=== PATIENT | male | born 1975 | race Caucasian/White ===

== ENCOUNTER 2018-11-08 11:05 | Emergency (ER) | payer MEDICAID ==
[~2018-11-08] VITALS: Ht 190.5 cm; Wt 100.0 kg
[2018-11-08 11:06] VITALS: BP 135/86
== END 2018-11-08 11:47 | disposition home or self-care (01) ==
LOC: ER 11:06
DX: S50.11XA Contusion of right forearm, initial encounter (principal); R00.0 Tachycardia, unspecified; F22 Delusional disorders; F41.9 Anxiety disorder, unspecified; Z88.6 Allergy status to analgesic agent; Z59.0 Homelessness; Z56.0 Unemployment, unspecified; X58.XXXA Exposure to other specified factors, initial encounter; Y93.89 Activity, other specified; Y92.89 Other specified places as the place of occurrence of the external cause; Y99.8 Other external cause status
CPT/HCPCS: 99281

== ENCOUNTER 2024-08-27 13:31 | Emergency (ER) | payer MEDICAID ==
[~2024-08-27] VITALS: Ht 190.5 cm; Wt 125.4 kg
[2024-08-27 13:35] VITALS: BP 160/84; PULSE 87; RESP 18; TEMP 97.8; O2SAT 98
--- NOTE | 2024-08-27 13:46 | ELECTROCARDIOGRAPH REPORT ---
[facility] Test Date: 2024-08-27 Test Time: 13:43:24 Pat Name: VELVET SOLORZANO Department: [facility]ER Patient ID: [id number] Room: Gender: M [employer]: : 1975 Requested By: KHANG PANG Order Number: [id number] Reading MD: Dr. Khang Pang Measurements Intervals [place] Rate: 101 P: 69 MI: 161 QRS: -8 QRSD: 104 T: 28 QT: 344 QTc: 446 Interpretive Statements Sinus tachycardia Abnormal R-wave progression, early transition Borderline T wave abnormalities Electronically Signed On 08-27-2024 16:26:[address] Khang Pang Please click the below link to view image of tracing.
--- NOTE | 2024-08-27 15:38 | Physician Documentation ---
History of Present Illness ~ Chief Complaint: Medical Clearance Stated Complaint: EKG Time Seen by MD: 13:58 Primary Medical Doctor: DR DARBY VALLEJO The patient is seen today with Complaints of needing med clearance/EKG clearance for his the methadone clinic at which he just recently establish care. Patient states he has been on methadone for quite a while. Patient denies any current chest pain or shortness of breath or abdominal pain or nausea, vomiting, diarrhea. Patient has no new or other concern or complaint at this time. Tetanus within 5 years?: Yes Medication Reconciliation Allergies: Coded Allergies: ibuprofen (Verified Adverse Reaction, Unknown, BLEEDING ULCERS, 08/27/24) Past Medical History Past Medical History: No Pertinent History Past Surgical History: noncontributory Lives In: Homeless Occupation: unemployed Review of Systems Constitutional: Denies: chills, fever, weakness Eyes: Denies: pain, blurred vision ENT: Denies: ear pain, nose pain, throat pain, mouth pain Respiratory: Denies: cough, shortness of breath Cardiovascular: Denies: chest pain, palpitations Gastrointestinal: Denies: abdominal pain, nausea, vomiting Genitourinary: Denies: burning, dysuria Male Genitalia: Denies: penile discharge, testicular pain Neurological: Denies: headache, dizziness Musculoskeletal: Denies: pain, swelling Integumentary: Denies: rash, lesions Allergic/Immunologic: Denies: hives, itching Hematologic/Lymphatic: Denies: no symptoms reported Psychiatric: Denies: depression, anxiety Physical Exam Vital Signs: Temperature: 97.8, Source: Temporal, Heart Rate: 87, Respiratory Rate: 18, BP: 160/84, Pulse Oximetry: 98, Weight: 125.400 Physical Exam General: Awake and Alert, no acute distress. HEENT: Conjunctiva pink, Sclera clear, Mucus Membranes moist. Neck: Supple without masses and tenderness. Resp: Unlabored. Lungs clear to auscultation bilaterally. Heart: Regular Rate and rhythm, normal S1 and S2 without murmur, rub or gallop. Abdomen: Soft and non tender no organomegaly Extremities: No cyanosis,clubbing or edema. Skin: Warm and Dry. Progress Results/Orders Results/Orders Vital Signs 08/27/24 13:35 Temp 97.8 Pulse 87 Resp 18 B/P (MAP) 160/84 Pulse Ox 98 EKG/XRAY/CT/US/VASC/MRI EKG : Additional Comment EKG interpretation by myself today shows mildly tachycardic rate at 101 beats per minute, normal sinus rhythm, no sign of ST segment elevation or ischemia, no axis deviation. Medical Decision Making Findings The patient is seen today with Complaints of needing med clearance/EKG clearance for his the methadone clinic at which he just recently establish care. Patient states he has been on methadone for quite a while. Patient denies any current chest pain or shortness of breath or abdominal pain or nausea, vomiting, diarrhea. Patient has no new or other concern or complaint at this time. Patient's EKGs largely within normal limits and unremarkable other than mild tachycardia. I did recheck patient's heart rate shortly after and his heart rate did come down to 92 beats per minute. Patient is cleared medically for treatment at the methadone clinic. Patient will return to ED with any worsening, concerning or changing symptoms. Departure Disposition: 01 HOME / SELF CARE / HOMELESS Impression: Primary Impression: General medical exam Condition: Stable Discharge Instructions: Medical Screening Exam Additional Instructions: Patient's EKGs largely within normal limits and unremarkable other than mild tachycardia. I did recheck patient's heart rate shortly after and his heart rate did come down to 92 beats per minute. Patient is cleared medically for t reatment at the methadone clinic. Patient will return to ED with any worsening, concerning or changing symptoms. Referrals: NO PRIMARY CARE PROVIDER (PCP) Signature Scribe Signature: No scribe Attestation: No scribe ZEN TREVIZO PAC August 27, 2024 15:38
== END 2024-08-27 15:50 | disposition home or self-care (01) ==
LOC: ER 13:32
DX: Z00.8 Encounter for other general examination (principal); Z88.6 Allergy status to analgesic agent
CPT/HCPCS: 93005; 99283